=== PATIENT | male | born 1985 | race Two or more races ===

== ENCOUNTER 2020-03-01 06:02 | Day surgery (SDC) | payer OTHER ==
[~2020-03-01 06:02] MED LIST: DESCOVY 200-251 EACH PO; LEVOTHYROXINE25 MCG PO
[2020-03-01] MEDS ORDERED: PERCOCET 5-3251 EACH PO (08:54)
[2020-03-01] MEDS ORDERED: NEURONTIN300 MG PO (08:55)
[2020-03-01] MEDS ORDERED: RECTICARE30 GM TOP (08:55)
== END 2020-03-01 15:10 | disposition home or self-care (01) ==
LOC: CIR.AMB 06:02
PROVIDERS: ATTEND Surgery
DX: D01.3 Carcinoma in situ of anus and anal canal (principal); Z20.828 Contact with and (suspected) exposure to other viral communicable diseases